=== PATIENT | female | born 1990 ===

== ENCOUNTER 2025-04-27 06:49 | Emergency (ER) | payer OTHER, SELFPAY ==
[2025-04-27 06:51] VITALS: BP 130/87
[2025-04-27 07:02] VITALS: BMI 36.6
--- NOTE | 2025-04-27 07:12 | ED.GENMED ---
History of Present Illness
General
Chief Complaint: Musculo-Skeletal Complaint
Source: patient
Time Seen by Provider: 04/27/25 07:00
History of Present Illness
History of Present Illness:
34-year-old female presents to the emergency room complaining of pain in her left anterior thigh. Pain seems worse with weightbearing and certain movements. No fever, chills. No trauma. Patient was taking Tylenol, lidocaine patches for pain.
She had a telehealth visit was told to go to the hospital to rule out a clot. She denies any chest pain or shortness of breath. Patient states the pain began 1 week ago a day after she was doing a lot of cleaning. Does not recall any specific
injury. She does have some subjective tingling in the anterior thigh.
Phy Exam
Physical Exam
Physical Exam:
General: Awake, Alert, Oriented X3. No acute distress.
Vitals: unremarkable
Head: Atraumatic
Eyes: Pupils equal, EOMI
Throat: Airway intact, no exudates
Neck: Trachea midline
Lungs: Clear and equal b/l
Heart: Regular rate, no murmurs
Abd: Soft, Nontender, No pulsatile mass
Neuro: No focal deficits, sensation intact
Skin: Warm, dry, no rash
Extremities: pulses equal b/l, no edema
Course
Orders/Labs/Results
Orders:
Orders
04/27/25 07:11
US Periph Venous LOWER Ext LT Urgent
Reason For Exam: thigh pain x 1 week
04/27/25 08:59
Sai Wrap Left-Treatment ONCE
Crutches-Treatment ONCE
Vital Signs
Initial and Last Documented VS:
Initial Vital Signs
Temp Pulse Resp BP Pulse Ox
98.2 F 83 20 130/87 100
04/27/25 06:51 04/27/25 06:51 04/27/25 06:51 04/27/25 06:51 04/27/25 06:51
Last Documented Vital Signs
Temp Pulse Resp BP Pulse Ox
98.2 F 83 20 130/87 100
04/27/25 06:51 04/27/25 06:51 04/27/25 06:51 04/27/25 06:51 04/27/25 06:51
MDM/Problems Addressed
Differential Diagnosis Includes:
DVT, muscle strain, radiculopathy
MDM/Problems Addressed:
DVT study is unremarkable. Overall presentation seems more consistent with muscle strain though radiculopathy cannot be ruled out. Recommend symptomatic care for now. Follow-up primary care provider if no better in a week and might need a MRI if
she is not getting better.
*Radiology
Radiology exam reviewed: radiology read reviewed
*Pulse Oximetry
Patient hypoxic: no
*Critical Care Note
Total Time (30-74mins, 75-104mins- exclusive of procedures): Not Applicable
ED Attending Note
-
Portions of this chart may have been created with voice recognition software.� Occasional wrong word or��sound alike� substitutions may have occurred due to the inherent limitations of voice recognition software.
Discharge Plan
Departure
Patient Disposition: Home (Routine Discharge)
Date of Disposition: 04/27/25
Time of Disposition: 08:55
Patient with high blood pressure during this ER visit?: No
Condition: Good
Discharge Problem:
Acute pain of left thigh
Instructions: Lower Extremity Muscle Strain
Prescriptions:
New
ibuprofen 600 mg tablet
600 mg PO Q6H PRN (Reason: Pain) Qty: 20 0RF
Referrals:
Lidya Garcia MD [Family Provider, General]
Activity Restrictions/Additional Instructions:
The ultrasound of your leg is negative for clot. The most likely reason for your leg pain is strain of the muscle however if it continues you might consider seeing your family doctor for further testing as a herniated disc could cause some similar
pain.
Interventions
Interventions:
*Risk Screen - Suicide Last Done: 04/27/25 06:51
*General Assessment Last Done: 04/27/25 07:02
*Neglect/Abuse Screening Last Done: 04/27/25 07:02
*ED- Fall Risk Assessment Last Done: 04/27/25 07:02
*ED COVID-19 Vaccine History Last Done: 04/27/25 07:02
*Nursing Disposition Last Done: 04/27/25 09:41
ED-Musculoskeletal Assessment Last Done: 04/27/25 07:02
Discharge Date and Time
Discharge Date/Time: 04/27/25 09:29
Print Language: KOSOVAN
== END 2025-04-27 09:29 | disposition home or self-care (01) ==
LOC: EMR 06:49
PROVIDERS: EMERGENCY PHYSICIAN Emergency Medicine; FAMILY PHYSICIAN Student in an Organized Health Care Education/Training Program
DX: M79.652 Pain in left thigh (principal); R20.2 Paresthesia of skin
CPT/HCPCS: 99284; 93971